=== PATIENT | female | born 1990 | race African-American/Black ===

== ENCOUNTER 2024-04-11 21:15 | Emergency (ER) | payer OTHER ==
[2024-04-11 21:28] VITALS: TEMP 98.9
--- NOTE | 2024-04-11 22:34 | ED ---
Psych HPI - General Chief Complaint: Psychiatric Symptoms Stated Complaint: petition Time Seen by Provider: 04/11/24 21:32 Source: police Mode of arrival: ambulatory - History of Present Illness Initial Comments: This patient is a 33-year-old woman who presents to have evaluation for depression. The patient states that she had gone to talk with her cousin about being depressed. She showed her cousin some superficial lacerations to her right forearm and her cousin called 911. The patient states that she has engaged in past cutting behavior. She states she does this to deal with her depression. She denies being suicidal. She states that she has children that she loves and wants to keep living for them. Complaint: feels depressed Onset/Timin -: days(s) Associated Psychiatric Symptoms: depression Quality: constant Improves With: none Worsens With: none - Related Data Allergies Allergy/AdvReac Type Severity Reaction Status Date / Time Penicillins Allergy Rash/Hives Verified 04/11/24 21:28 Review of Systems ROS Statement: Those systems with pertinent positive or pertinent negative responses have been documented in the HPI. ROS Other: All systems not noted in ROS Statement are negative. Constitutional: Denies: fever, chills Respiratory: Denies: cough, dyspnea Cardiovascular: Denies: chest pain, palpitations Gastrointestinal: Denies: abdominal pain, nausea, vomiting Genitourinary: Denies: dysuria, hematuria, abnormal menses Musculoskeletal: Denies: back pain Skin: Denies: rash Neurological: Denies: headache, weakness Psychiatric: Reports: depression. Denies: homicidal thoughts, suicidal thoughts Past Medical History Past Medical History: No Reported History History of Any Multi-Drug Resistant Organisms: None Reported Past Surgical History: No Surgical Hx Reported Past Psychological History: Anxiety, Depression Smoking Status: Never smoker Past Alcohol Use History: Rare Past Drug Use History: None Reported General Exam Limitations: no limitations General appearance: alert, in no apparent distress Head exam: Present: atraumatic, normocephalic Eye exam: Present: normal appearance. Absent: scleral icterus, conjunctival injection Neck exam: Present: normal inspection Respiratory exam: Present: normal lung sounds bilaterally. Absent: respiratory distress, wheezes, rales, rhonchi, stridor, accessory muscle use Cardiovascular Exam: Present: regular rate, normal rhythm, normal heart sounds. Absent: systolic murmur, diastolic murmur, rubs, gallop GI/Abdominal exam: Present: soft. Absent: distended, tenderness, guarding, rebound, rigid, mass Extremities exam: Present: normal inspection, normal capillary refill. Absent: pedal edema, calf tenderness Back exam: Present: normal inspection. Absent: CVA tenderness (R), CVA tenderness (L) Neurological exam: Present: alert Skin exam: Present: warm, dry, normal color, other (Has small superficial laceration to the right forearm. no active bleeding). Absent: intact Course Vital Signs 04/11/24 04/11/24 21:24 23:35 Temperature 98.9 F Pulse Rate 105 H 98 Respiratory 20 16 Rate Blood Pressure 148/120 134/86 O2 Sat by Pulse 100 96 Oximetry Medical Decision Making - Medical Decision Making Was pt. sent in by a medical professional or institution (, PA, BIG DATA ANALYTICS LEAD, urgent care, hospital, or [facility]...) When possible be specific @ -[No] Did you speak to anyone other than the patient for history (EMS, parent, family, police, friend...)? What history was obtained from this source @ -[No] Did you review nursing and triage notes (agree or disagree)? Why? @ -[I reviewed and agree with nursing and triage notes] Were old charts reviewed (outside hosp., previous admission, EMS record, old EKG, old radiological studies, urgent care reports/EKG's, [facility] records)? Report findings @ -[No old charts were reviewed] Differential Diagnosis (chest pain, altered mental status, abdominal pain women, abdominal pain men, vaginal bleeding, weakness, fever, dyspnea, syncope, headache, dizziness, GI bleed, back pain, seizure, CVA, palpatations, mental health, musculoskeletal)? @ -[Differential Mental Health Depression, anxiety, bipolar, psychosis, schizophrenia, borderline personality, situational depression, adjustment disorder, behavioral disorder, brain tumor, malingering, substance abuse, encephalopathy, medication reaction, dementia, hypothyroidism, degenerative neurologic disorder, lupus.... This is not meant to be all-inclusive list EKG interpreted by me (3pts min.). @ -[As above] X-rays interpreted by me (1pt min.). @ -[None done] CT interpreted by me (1pt min.). @ -[None done] U/S interpreted by me (1pt. min.). @ -[None done] What testing was considered but not performed or refused? (CT, X-rays, U/S, labs)? Why? @ -[None] What meds were considered but not given or refused? Why? @ -[None] Did you discuss the management of the patient with other professionals (professionals i.e. Dr., PA, BIG DATA ANALYTICS LEAD, lab, RT, psych nurse, social studies department chair, chemist steroids, teacher, fire control officer, assistant case manager)? Give summary @ -[No] Was smoking cessation discussed for >3mins.? @ -[No] Was critical care preformed (if so, how long)? @ -[No] Were there social determinants of health that impacted care today? How? (Homelessness, low income, unemployed, alcoholism, drug addiction, transportation, low edu. Level, literacy, decrease access to med. care, skilled nursing, rehab)? @ -[No] Was there de-escalation of care discussed even if they declined (Discuss DNR or withdrawal of care, Hospice)? DNR status @ -[No] What co-morbidities impacted this encounter? (DM, HTN, Smoking, COPD, CAD, Cancer, CVA, ARF, Chemo, Hep., AIDS, mental health diagnosis, sleep apnea, morbid obesity)? @ -[None] Was patient admitted / discharged? Hospital course, mention meds given and route, prescriptions, significant lab abnormalities, going to OR and other pertinent info. @ -[Patient is a 33-year-old woman here to have psychiatric evaluation after family member noted that she had engaged in cutting behavior. Patient is seen by EPS and is stable to have further care as outpatient. Undiagnosed new problem with uncertain prognosis? @ -[No] Drug Therapy requiring intensive monitoring for toxicity (Heparin, Nitro, Insulin, Cardizem)? @ -[No] Were any procedures done? @ -[No] Diagnosis/symptom? @ -[Acute mood disorder Acute, or Chronic, or Acute on Chronic? @ -[Acute Uncomplicated (without systemic symptoms) or Complicated (systemic symptoms)? @ -Uncomplicated Side effects of treatment? @ -[No] Exacerbation, Progression, or Severe Exacerbation? @ -[No] Poses a threat to life or bodily function? How? (Chest pain, [place], [place], pneumonia, PE, COPD, DKA, ARF, appy, cholecystitis, CVA, Diverticulitis, Homicidal, Suicidal, threat to staff... and all critical care pts) @ -[No] Disposition Clinical Impression: Adjustment reaction Disposition: HOME SELF-CARE Condition: Good Instructions (If sedation given, give patient instructions): Mood Disorders (ED) Is patient prescribed a controlled substance at d/c from ED?: No Referrals: Donna Weber FNPBC [Primary Care Provider] - 1-2 days
[2024-04-11 23:42] VITALS: BP 134/86; PULSE 98; RESP 16
== END 2024-04-11 23:35 | disposition home or self-care (01) ==
LOC: EC 21:15
DX: S51.811A Laceration without foreign body of right forearm, initial encounter (principal); F43.20 Adjustment disorder, unspecified; Z88.0 Allergy status to penicillin; X58.XXXA Exposure to other specified factors, initial encounter
CPT/HCPCS: 82075; 99284

== ENCOUNTER 2024-11-14 19:18 | Emergency (ER) | payer OTHER ==
[2024-11-14 19:51] LABS: Basophils # (A) 0.07 10*3/uL (0.00-0.10); Basophils % (A) 0.7 %; Eosinophils # (A) 0.16 10*3/uL (0.04-0.35); Eosinophils % (A) 1.6 %; HCT 43.4 % (37.2-46.3); HGB 14.8 g/dL (12.0-15.0); Lymphocytes # (A) 3.89 10*3/uL (0.90-5.00); Lymphocytes % (A) 37.8 %; MCH 31.4 pg (27.0-32.0); MCHC 34.1 g/dL (32.0-37.0); MCV 92.1 fL (80.0-97.0); Mean Platelet Volume 10.9 fL (9.5-12.2); Monocytes # (A) 0.61 10*3/uL (0.20-1.00); Monocytes % (A) 5.9 %; Neutrophils % (A) 53.5 %; Platelet Count 289 10*3/uL (140-440); RBC 4.71 10*6/uL (4.10-5.20); RDW 12.4 % (11.5-14.5); WBC 10.28 10*3/uL (4.50-10.00)
[2024-11-14 20:05] LABS: INR 0.9 (<1.2); Partial Thromboplastin Time 24.2 sec (22.0-30.0); Prothrombin Time 10.4 sec (10.0-12.5)
[2024-11-14 20:06] LABS: ALT 16 U/L (4-34); AST 23 U/L (14-36); African American GFR (CKD) >90 (>60 ml/min/1.73 sqM); Albumin 3.5 g/dL (3.5-5.0); Alkaline Phosphatase 46 U/L (38-126); Anion Gap 9 mmol/L; Blood Urea Nitrogen 8 mg/dL (7-17); Calcium 8.4 mg/dL (8.4-10.2); Carbon Dioxide 25 mmol/L (22-30); Chloride 103 mmol/L (98-107); Glucose 96 mg/dL (74-99); Non-African American GFR(CKD) >90 (>60 ml/min/1.73 sqM); Potassium 3.8 mmol/L (3.5-5.1); Sodium 137 mmol/L (137-145); Total Bilirubin 0.8 mg/dL (0.2-1.3); Total Protein 5.9 g/dL (6.3-8.2)
--- NOTE | 2024-11-14 20:13 | ED ---
Chest Pain HPI - General Source: patient, EMS, RN notes reviewed Mode of arrival: EMS Limitations: no limitations - History of Present Illness MD Complaint: chest pain <Ivett Sams - Last Filed: 11/14/24 20:12> - History of Present Illness Onset/Timin -: hour(s) Onset: awoke with symptoms Pain Location: right chest Pain Radiation: back Severity: severe Quality: sharp, other (Pressure) Consistency: constant Improves With: nothing Worsens With: inspiration Treatments Prior to Arrival: none <John Young - Last Filed: 12/05/24 04:34> - General Chief Complaint: Chest Pain Stated Complaint: Chest Pain EMS Time Seen by Provider: 11/14/24 19:50 - History of Present Illness Initial Comments: Quick Note: This is a 33-year-old female who presents to the emergency department for chest pain. Patient states that it started when she was sleeping early this morning around 8 AM. Pain is described as a pressure-like sensation in the center of her chest. She has some radiation into the back. Denies any shortness of breath. Denies any history of cardiac issues. (Ivett Sams) This patient is a 33-year-old woman who presents with complaint of pain that woke her from sleep she states between 7 and 8 AM. She describes it as an aching or heavy feeling initially it was in her back between the shoulder blades. She states that after number of hours it also seem to be in her chest. She has not had associated symptoms. She states that it does get a little worse if she takes a deep breath. She has otherwise not noticed worsening or relieving factors. Exertion did not seem to change it as she was able to walk to [facility] and back from her home without worsening pain. Patient denies dyspnea, diaphoresis, nausea or vomiting. The patient states she was given aspirin and nitroglycerin by EMS and that it did not alter the pain (John Young) - Related Data Previous Rx's Medication Instructions Recorded Ibuprofen 800 mg PO Q8H #21 tab 11/15/24 Allergies Allergy/AdvReac Type Severity Reaction Status Date / Time Penicillins Allergy Rash/Hives Verified 11/14/24 19:23 Review of Systems ROS Other: All systems not noted in ROS Statement are negative. <Ivett Sams - Last Filed: 11/14/24 20:12> ROS Other: All systems not noted in ROS Statement are negative. Constitutional: Denies: fever, chills, weakness Respiratory: Denies: cough, dyspnea, hemoptysis Cardiovascular: Reports: as per HPI, chest pain. Denies: palpitations, dyspnea on exertion, orthopnea, edema, syncope Gastrointestinal: Denies: abdominal pain, nausea, vomiting, diarrhea Genitourinary: Denies: dysuria, hematuria Musculoskeletal: Reports: as per HPI, back pain Skin: Denies: rash Neurological: Denies: headache, weakness, numbness <SoniaaugustoJohn - Last Filed: 12/05/24 04:34> ROS Statement: Those systems with pertinent positive or pertinent negative responses have been documented in the HPI. EKG Findings - EKG Results: EKG: interpreted by CECIL, sinus rhythm (Rate 84 bpm), normal axis, normal QRS - Blocks, [place], Hypertrophy, ST Abn: Repolarization changes or abnormalities: nonspecific abnormality, ST segment, and/or T wave <HectorJohn - Last Filed: 12/05/24 04:34> Past Medical History Past Medical History: No Reported History History of Any Multi-Drug Resistant Organisms: None Reported Past Surgical History: No Surgical Hx Reported Past Psychological History: Anxiety, Depression Smoking Status: Never smoker Past Alcohol Use History: Rare Past Drug Use History: None Reported <Ivett Sams - Last Filed: 11/14/24 20:12> General Exam Limitations: no limitations <Ivett Sams - Last Filed: 11/14/24 20:12> General appearance: alert, in no apparent distress Head exam: Present: atraumatic, normocephalic Eye exam: Present: normal appearance. Absent: scleral icterus, conjunctival injection ENT exam: Present: normal oropharynx Neck exam: Present: normal inspection Respiratory exam: Present: normal lung sounds bilaterally. Absent: respiratory distress, wheezes, rales, rhonchi, stridor, accessory muscle use Cardiovascular Exam: Present: regular rate, normal rhythm, normal heart sounds. Absent: systolic murmur, diastolic murmur, rubs, gallop GI/Abdominal exam: Present: soft. Absent: distended, tenderness, guarding, rebound, rigid, mass Extremities exam: Present: normal inspection, normal capillary refill. Absent: pedal edema, calf tenderness Back exam: Present: normal inspection. Absent: CVA tenderness (R), CVA tenderness (L), paraspinal tenderness, vertebral tenderness Neurological exam: Present: alert Skin exam: Present: warm, dry, intact, normal color. Absent: rash <John Young - Last Filed: 12/05/24 04:34> - General Exam Comments Initial Comments: Visual Physical Exam Vital signs reviewed General: Well-appearing, nontoxic, no acute distress. Head: Normocephalic, atraumatic Eyes: PERRLA, EOMI ENT: Airway patent Chest: Nonlabored breathing Skin: No visual rash, normal skin tone Neuro: Alert and oriented 3 Musculoskeletal: No gross abnormalities (Ivett Sams) Course Vital Signs 11/14/24 11/14/24 11/15/24 19:20 22:02 00:23 Temperature 98 F Pulse Rate 79 68 61 Respiratory 18 18 16 Rate Blood Pressure 110/74 116/83 106/72 O2 Sat by Pulse 100 99 100 Oximetry 11/15/24 01:00 Temperature 98.0 F Pulse Rate 59 L Respiratory 16 Rate Blood Pressure 111/72 O2 Sat by Pulse 97 Oximetry Chest Pain MDM <Ivett Sams - Last Filed: 11/14/24 20:12> <John Young - Last Filed: 12/05/24 04:34> - MDM I performed the QuickNote portion of this chart. Signed Ivett Sams PA-C. (Ivett Sams) The patient had two-view chest x-ray that I interpreted as negative for acute infiltrate, pneumothorax, congestive heart failure The patient had ultrasound of the right upper quadrant that I interpreted as negative for gallbladder wall thickening or pericholecystic fluid. No dilation of the common bile duct. Was pt. sent in by a medical professional or institution (KYUNG Damon, [employer] NETWORK ENGINEER, urgent care, hospital, or group home...) When possible be specific @ -[No] Did you speak to anyone other than the patient for history (EMS, parent, family, police, friend...)? What history was obtained from this source @ -[No] Did you review nursing and triage notes (agree or disagree)? Why? @ -[I reviewed and agree with nursing and triage notes] Were old charts reviewed (outside hosp., previous admission, EMS record, old EKG, old radiological studies, urgent care reports/EKG's, group home records)? Report findings @ -[No old charts were reviewed] Differential Diagnosis (chest pain, altered mental status, abdominal pain women, abdominal pain men, vaginal bleeding, weakness, fever, dyspnea, syncope, headache, dizziness, GI bleed, back pain, seizure, CVA, palpatations, mental health, musculoskeletal)? @ -[Differential Chest Pain: Stable Angina, Unstable Angina, STEMI, NSTEMI Aortic Dissection, Pneumothorax, Musculoskeletal, Esophageal Spasm GERD, Cholecystitis, Pancreatitis, Zoster, this is not meant to be an all-inclusive list. EKG interpreted by me (3pts min.). @ -[As above] X-rays interpreted by me (1pt min.). @ -[I interpreted as above CT interpreted by me (1pt min.). @ -[None done] U/S interpreted by me (1pt. min.). @ -I interpreted as above What testing was considered but not performed or refused? (CT, X-rays, U/S, labs)? Why? @ -[None] What meds were considered but not given or refused? Why? @ -[None] Did you discuss the management of the patient with other professionals (professionals i.e. , PA, CIS[employer] NETWORK ENGINEER, lab, RT, psych nurse, social science teacher, venetian blind worker, teacher, collections officer, case assistant)? Give summary @ -[No] Was smoking cessation discussed for >3mins.? @ -[No] Was critical care preformed (if so, how long)? @ -[No] Were there social determinants of health that impacted care today? How? (Homelessness, low income, unemployed, alcoholism, drug addiction, transportation, low edu. Level, literacy, decrease access to med. care, group home, rehab)? @ -[No] Was there de-escalation of care discussed even if they declined (Discuss DNR or withdrawal of care, Hospice)? DNR status @ -[No] What co-morbidities impacted this encounter? (DM, HTN, Smoking, COPD, CAD, Cancer, CVA, ARF, Chemo, Hep., AIDS, mental health diagnosis, sleep apnea, morbid obesity)? @ -[None] Was patient admitted / discharged? Hospital course, mention meds given and route, prescriptions, significant lab abnormalities, going to OR and other pertinent info. @ -[Patient is 33-year-old woman here with pleuritic chest pain. The workup is not indicative of ischemia. The patient did also have a little bit of element in the right upper quadrant radiating to the back and therefore had ultrasound to evaluate for cholecystitis. This evaluation negative. Patient feeling better with treatment. Discussed appropriate further care and follow-up as well as return parameters. Undiagnosed new problem with uncertain prognosis? @ -[No] Drug Therapy requiring intensive monitoring for toxicity (Heparin, Nitro, Insulin, Cardizem)? @ -[No] Were any procedures done? @ -[No] Diagnosis/symptom? @ -[Acute pleuritic chest pain Acute, or Chronic, or Acute on Chronic? @ -[Acute Uncomplicated (without systemic symptoms) or Complicated (systemic symptoms)? @ -[Uncomplicated Side effects of treatment? @ -[No] Exacerbation, Progression, or Severe Exacerbation? @ -[No] Poses a threat to life or bodily function? How? (Chest pain, [place], [place], pneumonia, PE, COPD, DKA, ARF, appy, cholecystitis, CVA, Diverticulitis, Homicidal, Suicidal, threat to staff... and all critical care pts) @ -[No] All treatments are based on ideal body weight as in ED triage (John Young) Disposition <Ivett Sams - Last Filed: 11/14/24 20:12> Is patient prescribed a controlled substance at d/c from ED?: No <John Young - Last Filed: 12/05/24 04:34> Clinical Impression: Pleuritic chest pain Disposition: HOME SELF-CARE Condition: Good Instructions (If sedation given, give patient instructions): Pleurisy (DC) Prescriptions: Ibuprofen 800 mg PO Q8H #21 tab Referrals: Shabnam Morin MD [Primary Care Provider] - 1-2 days
--- NOTE | 2024-11-14 20:43 | XR ---
EXAMINATION TYPE: XR chest 2V DATE OF EXAM: 11/14/2024 8:34 PM COMPARISON: None. CLINICAL INDICATION: Female, 33 years old with history of Chest Pain, TECHNIQUE: XR chest 2V view(s) obtained. FINDINGS: The heart size is normal. The pulmonary vasculature is normal. The lungs are clear. IMPRESSION: 1. No acute pulmonary process. [facility], , 11/14/2024 8:41 PM
[2024-11-14] MEDS: KETOROLAC 15 MG/ML 1 ML VIAL IVP STA (22:37)
[2024-11-15 00:24] VITALS: RESP 16
--- NOTE | 2024-11-15 00:24 | US ---
EXAMINATION TYPE: US abdomen limited DATE OF EXAM: 11/15/2024 COMPARISON: NONE CLINICAL INDICATION: Female, 33 years old with history of attention RUQ; pt states right sided chest pain TECHNIQUE: Grayscale and color Doppler imaging of the right upper quadrant was performed. FINDINGS: EXAM MEASUREMENTS: Liver Length: 15.6 cm Gallbladder Wall: 0.2 cm CBD: 0.2 cm Right Kidney: 9.9 x 4.2 x 5.1 cm INSPECTOR RAG SORTING NOTES:Slightly limited due to overlying gas Pancreas: wnl as best seen Liver: wnl Gallbladder: wnl Evidence for sonographic Mansfield's sign: no CBD: wnl Right Kidney: wnl The visualized pancreas is within normal limits. The liver is unremarkable without focal lesion. Gall bladder demonstrates no wall thickening, stones, or surrounding fluid. Negative sonographic Mansfield's sign. Common bile duct is within normal limits. Right kidney demonstrates no hydronephrosis, solid ma ss or shadowing calculus. IMPRESSION: No ultrasound evidence for acute process. [facility], , 11/15/2024 12:21 AM
[2024-11-15 01:12] VITALS: BP 111/72; PULSE 59; TEMP 98
== END 2024-11-15 01:08 | disposition home or self-care (01) ==
LOC: EC 19:18
DX: R07.81 Pleurodynia (principal); Z88.0 Allergy status to penicillin
CPT/HCPCS: 36415; 93005; 85379; 80053; 83735; 84484; 85025; 85610; 85730; 71046; 76705; 99285; 96374; J1885